=== PATIENT | male | born 1965 | race Two or more races ===

== ENCOUNTER → 2016-10-31 | Outpatient (CLI) | payer OTHER ==
--- NOTE | 2016-10-31 22:42 | XR ---
EXAMINATION TYPE: XR lumbar spine 2 or 3V DATE OF EXAM: 10/31/2016 6:47 PM COMPARISON: NONE HISTORY: 51-year-old male right lower extremity weakness, lumbago. TECHNIQUE: 3 views FINDINGS: 5 lumbar type vertebral bodies. Mild facet arthropathy mid to lower lumbar spine. There also appears to be mild disc interspace narrowing in the upper lumbar spine. Grade 1 retrolisthesis at L4-L5 likel y on a degenerative basis. Vertebral body heights are preserved. IMPRESSION: Some facet arthropathy in the mid to lower lumbar spine with a grade 1 retrolisthesis at L4-L5. There is very mild degenerative disc disease in the upper lumbar spine. No vertebral compression collapse.
== END | disposition home or self-care (01) ==
LOC: RADXRMAIN 18:28
PROVIDERS: ATTEND Family Medicine
DX: M43.16 Spondylolisthesis, lumbar region (principal); M51.36 Other intervertebral disc degeneration, lumbar region; M46.86 Other specified inflammatory spondylopathies, lumbar region; M54.5 Low back pain; G89.29 Other chronic pain
CPT/HCPCS: 72100

== ENCOUNTER 2019-11-16 07:48 | Day surgery (SDC) | payer OTHER ==
[2019-11-12 11:23] VITALS: BMI 23.6
[~2019-11-16 07:48] MED LIST: LACTATED RINGERS 1,000 ML IV SCH; LIDOCAINE 1% (10MG/ML) FOR IV START INTRADERMA PRN
[2019-11-16 08:15] VITALS: RESP 16; TEMP 98
[2019-11-16] MEDS ORDERED: PROPOFOL 10 MG/ML 20 ML VIAL IV ONE (08:52)
--- NOTE | 2019-11-16 09:00 | P.GSHP ---
History of Present Illness H&P Date: 11/16/19 Chief Complaint: Screening colonoscopy This a 54-year-old male who presents today for screening colonoscopy. Patient denies a significant GI complaints. Past Medical History Additional Past Medical History / Comment(s): positive cologard History of Any Multi-Drug Resistant Organisms: None Reported Past Surgical History: Orthopedic Surgery Additional Past Surgical History / Comment(s): arthroscopy right knee Past Anesthesia/Blood Transfusion Reactions: No Reported Reaction Smoking Status: Current every day smoker Medications and Allergies Home Medications Medication Instructions Recorded Confirmed Type No Known Home Medications 11/12/19 11/16/19 History Allergies Allergy/AdvReac Type Severity Reaction Status Date / Time bee venom protein (honey bee) Allergy Dyspnea Verified 11/16/19 08:06 Surgical - Exam Vital Signs Temp Pulse Resp BP Pulse Ox 98 F 86 16 120/78 98 11/16/19 08:08 11/16/19 08:08 11/16/19 08:08 11/16/19 08:08 11/16/19 08:08 - General well developed, well nourished, no distress - Eyes PERRL - ENT normal pinna - Neck no masses - Respiratory normal expansion - Cardiovascular Rhythm: regular - Abdomen Abdomen: soft, non tender Assessment and Plan Assessment: We'll perform screening colonoscopy
--- NOTE | 2019-11-16 09:25 | P.OP ---
Date of Procedure: 11/16/19 Preoperative Diagnosis: Screening colonoscopy Postoperative Diagnosis: Colonic polyps Procedure(s) Performed: Colonoscopy Anesthesia: MAC Surgeon: Nikolas Hester Pathology: other (Rectal, sigmoid colon polyps) Condition: stable Disposition: PACU Description of Procedure: The patient's placed on the endoscopy table in the lateral position. He received IV sedation. Digital rectal exam was performed which revealed no abnormalities. The flexible colonoscope was then placed patient anus and passed throughout the colon. Scope could not be passed into the transverse colon secondary to tortuosity valve. Patient difficulty maintaining air within the colon. This point scope was withdrawn. The visualized ascending colon appeared normal. In the sigmoid colon there were several polyp seen this were biopsied with a cold forcep. Scope was brought back the rectum and the another polyp was seen this removed with the cold forcep. Scope was withdrawn for patient. Patient was scheduled for a barium enema.
[2019-11-16 09:42] VITALS: BP 97/61; PULSE 58
== END 2019-11-16 10:18 | disposition home or self-care (01) ==
LOC: ORWHC2ENDO 07:48
PROVIDERS: ATTEND Surgery
DX: Z12.11 Encounter for screening for malignant neoplasm of colon (principal); K62.1 Rectal polyp; K63.5 Polyp of colon; Q43.8 Other specified congenital malformations of intestine; K08.89 Other specified disorders of teeth and supporting structures; F17.210 Nicotine dependence, cigarettes, uncomplicated; Z87.898 Personal history of other specified conditions; Z98.890 Other specified postprocedural states; Z91.030 Bee allergy status
CPT/HCPCS: 45380; 88305; J2704; 45331

== ENCOUNTER → 2019-11-22 | Outpatient (CLI) | payer OTHER ==
--- NOTE | 2019-11-22 12:13 | FL ---
EXAMINATION TYPE: FL barium enema DATE OF EXAM: 11/22/2019 CLINICAL HISTORY: Incomplete colonoscopy TECHNIQUE: A double contrast barium enema study is performed. COMPARISON: None. FINDINGS: Commissary Steward view of the abdomen shows overall non-obstructive bowel gas pattern.No evidence of a ny mass or polyp, obstructing or constricting lesion throughout the colon. Mild scattered diverticulo sis without diverticulitis. Appendix was filled and appeared normal. The terminal ileum was refluxed and appears within normal limits. IMPRESSION: Mild scattered diverticulosis without diverticulitis.
== END | disposition home or self-care (01) ==
LOC: RADFLMAIN 08:50
PROVIDERS: ATTEND Surgery
DX: K57.30 Diverticulosis of large intestine without perforation or abscess without bleeding (principal)
CPT/HCPCS: 74270

== ENCOUNTER → 2021-02-15 | Outpatient (CLI) | payer OTHER ==
--- NOTE | 2021-02-15 16:31 | CT ---
EXAMINATION TYPE: CT chest wo con DATE OF EXAM: 02/15/2021 COMPARISON: None HISTORY: pulmonary nodules CT DLP: 216.2 mGycm Automated exposure control for dose reduction was used. Images obtained from the thoracic inlet to the diaphragm without contrast. There is some bullous emphysema in the upper lobes. There is irregular pleural thickening at the lung apices. There is no pleural effusion. There is no pericardial effusion. Heart size is normal. There are no hilar masses. There is no mediastinal adenopathy. There are a few paratracheal lymph nodes jan t measure up to 8 mm. Thoracic aorta is intact. Ascending aorta measures 3.3 cm. The upper abdominal soft tissues appear intact. The thoracic spine is intact. There is no compression fracture. IMPRESSION: Bullous emphysema. Pleural and pulmonary scarring at the lung apices. No suspicious pulmonary mass.
== END | disposition home or self-care (01) ==
LOC: RADCTMAIN 13:00
PROVIDERS: ATTEND Internal Medicine Pulmonary Disease
DX: J43.9 Emphysema, unspecified (principal); J98.4 Other disorders of lung
CPT/HCPCS: 71250